=== PATIENT | female | born 2000 | race Caucasian/White ===

== ENCOUNTER 2018-06-30 17:59 | Emergency (ER) | payer OTHER ==
[~2018-06-30] VITALS: Ht 154.9 cm; Wt 52.3 kg
[2018-06-30 18:05] VITALS: BP 125/91; Ht 154.9 cm; Wt 52.3 kg
== END 2018-06-30 18:50 | disposition home or self-care (01) ==
LOC: ED 17:59
DX: R51 Headache (principal); R50.9 Fever, unspecified; H57.13 Ocular pain, bilateral

== ENCOUNTER 2018-07-05 17:33 | Emergency (ER) | payer OTHER ==
[~2018-07-05] VITALS: Ht 154.9 cm; Wt 52.2 kg
[2018-07-05 17:43] VITALS: Ht 154.9 cm; Wt 52.2 kg
[2018-07-06] VITALS: BP 105/72
== END 2018-07-06 | disposition home or self-care (01) ==
LOC: ED 17:33
DX: J32.8 Other chronic sinusitis (principal); B96.89 Other specified bacterial agents as the cause of diseases classified elsewhere
CPT/HCPCS: 86308

== ENCOUNTER 2019-10-08 11:41 | Emergency (ER) | payer OTHER ==
[~2019-10-08] VITALS: Ht 154.9 cm; Wt 50.5 kg
[2019-10-08 12:16] VITALS: Ht 154.9 cm; Wt 50.5 kg
[2019-10-08 15:59] VITALS: BP 112/84
== END 2019-10-08 16:07 | disposition home or self-care (01) ==
LOC: ED 11:41
DX: J02.8 Acute pharyngitis due to other specified organisms (principal)
CPT/HCPCS: 87804; Q0092